=== PATIENT | female | born 1995 | race Caucasian/White ===

== ENCOUNTER 2017-06-19 11:20 | Emergency (ER) | payer OTHER ==
[2017-06-19 11:28] VITALS: BP 124/68; BMI 27.3
--- NOTE | 2017-06-19 11:52 | DR.GENAD ---
HPI - PCP Primary Care Physician: DR ARMENTA IN [place] - HPI Comment HPI Comment: HISTORY BELOW. - Complaint/Symptoms Chief Complaint Doctors Comments: SPOTTING TIMES 3 DAYS WITH LOWER ABDOMINAL CRAMPING. BLEEDING INCREASING. NO DYSURIA. Chief Complaint:: PT STATED SHE IS 5 WEEKS AND FOR THE PAST 3 DAYS SPOTTING AND THIS MORNING SHE NOTICED BLOOD IN HER TOLIET. DR ARMENTA STATED TO GO TO A ER AND THEN FOLLOW UP WITH THEM IN THE MORNING IN [place] - Nurses notes reviewed Nurses Notes Review: Yes - Source History Provided: Patient - Mode of Arrival Mode of Arrival: Ambulatory - Timing Onset of Chief Complaint: 06/16/17 Came on: Suddenly - Duration Duration: Constant Duration: Days - Severity Severity: Moderate PMH - PMH Past Medical History: No Past Surgical History: Yes Surgical History: - Family History History of Family Medical Conditions: No - Social History Does patient currently use any type of tobacco product: Yes Have you used tobacco products in the last 12 months: Yes Type of Tobacco Use: Cigarettes How many years tobacco product used: 5 Does any household member use tobacco: No Alcohol Use: None Do you use any recreational Drugs:: No Lives With: Family Lives Where: Home - infectious screening In the last 2 months have you had wt loss of >10#?: NO Have you had fever, night sweats or hemotysis?: No Have you traveled outside the country in the last 6 months?: No Isolation: Standard ROS - Review of Systems Constitutional: No Symptoms Reported Eyes: No Symptoms Reported ENTM: No Symptoms Reported Respiratoy: No Symptoms Reported Cardiovascular: No Symptoms Reported Gastrointestinal/Abdominal: Abdominal Pain Genitourinary: Pain, Bleeding. negative: Dysuria Neurological: No Symptoms Reported Musculoskeletal: No Symptoms Reported Integumentary: No Symptoms Reported Hematologic/Lymphatic: No Symptoms Reported Endocrine: No Symptoms Reported Psychiatric: No Symptoms Reported All Other Systems: Reviewed and Negative PE - Vital Signs Vitals: Temperature 99.3 F Pulse Rate 110 Respiratory Rate 16 Blood Pressure 124/68 O2 Sat by Pulse Oximetry 98 - General Limitations: No Limitations General Appearance: Alert - Head Head Exam: Normal Inspection - Eyes Eye exam: Normal Appearance - ENT ENT Exam: Normal External Ear Exam External Ear Exam: Normal External Inspection TM/Canal Exam: Bilateral Normal Nose Exam: Normal Nose Exam Mouth Exam: Normal Inspection Throat Exam: Normal Inspection - Neck Neck Exam: Trachea Midline - Chest Chest Inspection: Symmetric Chest Wall Rise - Respiratory Respiratory Exam: Normal Lung Sounds Bilat Respiratory Exam: Bilateral Clear to Auscultation - Cardiovascular Cardiovascular Exam: Regular Rate, Normal Rhythm, Normal Heart Sounds - Abdominal Exam Abdominal Exam: Normal Bowel Sounds, Soft. negative: Tenderness - Extremities Extremities Exam: Normal Inspection - Back Back Exam: Normal Inspection - Neurologic Neurological Exam: Alert, Oriented X3 - Psychiatric Psychiatric Exam: Anxious - Skin Skin Exam: Normal Color MDM - Additional Information Additional Information Obtained From: Family - Differential Diagnosis Differential Diagnosis: VAGINAL BLEEDING, ABDOMINAL PAIN Course - Treatment Treatment: SEE ORDERS. PATIENT RH NEGATIVE. [facility] IM IN ED. - Education/Counseling Education/Counseling: Patient, Family, Education Educated On: Diagnosis ROR - Labs Reviewed Laboratory Results Reviewed?: Yes Result Diagrams: 06/19/17 12:00 Laboratory: WBC 14.2 X10^3/uL (3.6-10.0) H 06/19/17 12:00 RBC 4.70 X10^6/uL (3.5-5.4) 06/19/17 12:00 Hgb 14.7 g/dL (12.0-16.0) 06/19/17 12:00 Hct 42.0 % (36.0-47.0) 06/19/17 12:00 MCV 89.4 fL (80.0-100.0) 06/19/17 12:00 MCH 31.3 pg (27.0-34.0) 06/19/17 12:00 MCHC 35.0 g/dL (33.0-35.0) 06/19/17 12:00 RDW 13.0 % (11.6-16.5) 06/19/17 12:00 Plt Count 198 X10^3/uL (150.0-450.0) 06/19/17 12:00 MPV 9.1 fL (7.4-11.0) 06/19/17 12:00 Neut % (Auto) 84.3 % (42.0-75.0) H 06/19/17 12:00 Lymph % (Auto) 11.9 % (21.0-51.0) L 06/19/17 12:00 [place] % (Auto) 3.1 % (0.0-13.0) 06/19/17 12:00 Eos % (Auto) 0.4 % (0.9-2.9) L 06/19/17 12:00 Baso % (Auto) 0.3 % (0.2-1.0) 06/19/17 12:00 Neut # (Auto) 11.9 x10^3/uL (2.2-4.8) H 06/19/17 12:00 Lymph # (Auto) 1.7 X10^3/uL (1.3-2.9) 06/19/17 12:00 [place] # (Auto) 0.4 x10^3/uL (0.3-0.8) 06/19/17 12:00 Eos # (Auto) 0.1 x10^3/uL (0.0-0.2) 06/19/17 12:00 Baso # (Auto) 0.0 X10^3/uL (0.0-0.1) 06/19/17 12:00 Absolute Nucleated RBC 0.0 /100WBC 06/19/17 12:00 HCG, Qual Positive >10 mIU/mL 06/19/17 12:00 HCG, Quant 64561 mIU/mL (0-6) H 06/19/17 12:02 Specimen Type Clean catch urine 06/19/17 11:58 Urine Color [place] (YELLOW) 06/19/17 11:58 Urine Appearance Cloudy (CLEAR) 06/19/17 11:58 Urine pH 6.0 (5.0 - 8.0) 06/19/17 11:58 Ur Specific [place] 1.020 (1.000-1.030) 06/19/17 11:58 Urine Protein 3+ (NEGATIVE) 06/19/17 11:58 Urine Glucose (UA) Negative (NEGATIVE) 06/19/17 11:58 Urine Ketones 1+ (NEGATIVE) 06/19/17 11:58 Urine Occult Blood 5+ (NEGATIVE) 06/19/17 11:58 Urine Nitrite Positive (NEGATIVE) 06/19/17 11:58 Urine Bilirubin 1+ (NEGATIVE) 06/19/17 11:58 Urine Urobilinogen 1+ (NORMAL) 06/19/17 11:58 Ur Leukocyte Esterase 3+ (NEGATIVE) 06/19/17 11:58 Urine RBC Tntc /HPF (NONE SEEN) 06/19/17 11:58 Urine WBC 3-5 /HPF (NONE SEEN) 06/19/17 11:58 Ur Squamous Epith Cells Moderate /HPF (NEGATIVE) 06/19/17 11:58 Urine Bacteria 1+ /HPF (NEGATIVE) 06/19/17 11:58 Ur Culture Indicated? Yes/culture set up 06/19/17 11:58 Blood Type A NEGATIVE 06/19/17 12:00 Antibody Screen Negative 06/19/17 12:00 Baby's Blood Type Cancelled 06/19/17 12:00 RhIG Eligibility Cancelled 06/19/17 12:00 Maternal Bleed Cancelled 06/19/17 12:00 Doses of RhIg Required Cancelled 06/19/17 12:00 - Diagnosis Discharge Problem: Vaginal bleeding affecting early , Abdominal pain affecting , UTI (urinary tract infection) - Discharge Plan Disposition: 01 HOME, SELF-CARE Condition: Stable Prescriptions: Nitrofurantoin Macro [Macrobid Cap 100 mg Ext Rel] 100 mg PO BID #14 cap - Follow ups/Referrals Follow ups/Referrals: [facility],None [Primary Care Provider] - 1 day - Instructions Instructions: Abdominal Pain During , [id number], Vaginal Bleeding During , First Trimester Additional Instructions: RETURN TO ED IF WORSE. SEE OB IN AM.
[2017-06-19 12:07] LABS: BILIRUBIN,URINE 1+ (NEGATIVE); BLOOD/HEMOGLOBIN,URINE 5+ (NEGATIVE); GLUCOSE, URINE NEGATIVE (NEGATIVE); KETONES,URINE 1+ (NEGATIVE); LEUKOCYTE ESTERASE ,URINE 3+ (NEGATIVE); NITRITES,URINE POSITIVE (NEGATIVE); PROTEIN,URINE 3+ (NEGATIVE); UROBILINOGEN,URINE 1+ (NORMAL)
[2017-06-19 12:11] LABS: APPEARANCE,URINE CLOUDY (CLEAR); COLOR,URINE AMBER (YELLOW)
[2017-06-19 12:12] LABS: BASOPHILS % (AUTO) 0.3 % (0.2-1.0); EOSINOPHILS # (AUTO) 0.1 x10^3/uL (0.0-0.2); EOSINOPHILS % (AUTO) 0.4 % (0.9-2.9); HEMOGLOBIN 14.7 g/dL (12.0-16.0); LYMPHOCYTES # (AUTO) 1.7 X10^3/uL (1.3-2.9); LYMPHOCYTES % (AUTO) 11.9 % (21.0-51.0); MEAN CORPUSCULAR HEMOGLOBIN 31.3 pg (27.0-34.0); MEAN CORPUSCULAR VOLUME 89.4 fL (80.0-100.0); MEAN PLATELET VOLUME 9.1 fL (7.4-11.0); MONOCYTES # (AUTO) 0.4 x10^3/uL (0.3-0.8); MONOCYTES % (AUTO) 3.1 % (0.0-13.0); NEUTROPHILS # (AUTO) 11.9 x10^3/uL (2.2-4.8); NEUTROPHILS % (AUTO) 84.3 % (42.0-75.0); PLATELET COUNT 198 X10^3/uL (150.0-450.0); WHITE BLOOD COUNT 14.2 X10^3/uL (3.6-10.0)
[2017-06-19 12:14] LABS: BACTERIA,URINE 1+ /HPF (NEGATIVE); RBC,URINE TNTC /HPF (NONE SEEN); SQUAMOUS EPITHELIAL CELL,UR MODERATE /HPF (NEGATIVE)
[2017-06-19 12:25] LABS: SERUM PREGNANCY TEST, QUAL POSITIVE >10 mIU/mL
[2017-06-19] MEDS ORDERED: HYPERRHO S/D (or RHOGAM) IM ONE (13:45)
--- NOTE | 2017-06-19 14:07 | US ---
Exam: Early obstetrical ultrasound History: 21-year-old female with spotting Comparison: None Findings: An intrauterine gestational sac is seen which measures 1.04 cm in size. A yolk sac is prese nt as well measuring 0.3 cm. No actual pole is identified this time. The uterus measures 5.2 x 4.6 x 4.8 cm in size. Right ovary is 2 x 1.3 x 2 cm. Left ovary measures 3 x 1.7 x 3 cm. No adnexal mass is seen on either side. No free fluid in the cul de sac. Impression: Intrauterine gestational sac which may correspond to a 5 week 0 day gestation. However no pole is actually seen on today's exam. Recommend follow-up obstetrical ultrasound within the next 2 weeks in order to document viability. Reported By:
== END 2017-06-19 14:39 | disposition home or self-care (01) ==
LOC: ER 11:42
DX: O26.851 Spotting complicating pregnancy, first trimester (principal); R10.84 Generalized abdominal pain; N39.0 Urinary tract infection, site not specified; Z3A.01 Less than 8 weeks gestation of pregnancy
CPT/HCPCS: 36415; 76801; 81001; 84702; 84703; 85025; 86850; 86900; 86901; 87086; 90471; 96372; 99284; J2790